=== PATIENT | male | born 1950 | race Caucasian/White ===

== ENCOUNTER 2019-06-01 05:32 | Outpatient (CLI) | payer MEDICARE ==
[~2019-06-01] VITALS: Ht 152.4 cm; Wt 88.5 kg
[2019-06-01] MEDS ORDERED: MULT-1104 PO (07:40)
[2019-06-01] MEDS ORDERED: LISI40TA PO (07:40)
[2019-06-01] MEDS ORDERED: ATOR10TA66 PO (07:40)
[2019-06-01] MEDS ORDERED: CARV25TA PO (07:40)
[2019-06-01] MEDS ORDERED: AMLO10TA7 PO (07:40)
[2019-06-01] MEDS ORDERED: FINA5TAB6 PO (07:40)
[2019-06-01] MEDS ORDERED: ASPI-586 PO (07:40)
[2019-06-01] MEDS ORDERED: TAMS0.4C98 PO (07:40)
== END 2019-06-01 07:42 | disposition home or self-care (01) ==
LOC: PREOP 05:32
PROVIDERS: ATTEND Specialist
DX: Z01.818 Encounter for other preprocedural examination (principal)

== ENCOUNTER 2019-06-02 08:11 | Day surgery (SDC) | payer MEDICARE, MEDICAID ==
[~2019-06-02] VITALS: Wt 88.5 kg
[~2019-06-02 08:11] MED LIST: AMLO10TA7 PO; ASPI-586 PO; ATOR10TA66 PO; CARV25TA PO; FINA5TAB6 PO; LISI40TA PO; MULT-1104 PO; TAMS0.4C98 PO
[2019-06-02 08:20] VITALS: BP 134/79
[2019-06-02] MEDS: TETRACAINE 0.5% OPHTH SOLN 4 ML BTL (SINGLE DOSE ONLY) OU PRN ×3 (08:26→08:32)
[2019-06-02] MEDS ORDERED: PHENYLEPHRINE 10% OPHTH (NEO-SYN) 5 ML BTL OU PRN (08:30)
[2019-06-02] MEDS ORDERED: TROPICAMIDE 1% OPH SOLN (MYDRIACYL) 15 ML BTL OU PRN (08:30)
--- NOTE | 2019-06-02 08:33 | Ophthalmologist Pre-Op Note ---
Pre-Operative Progress Note H&P Reviewed The H&P was reviewed, patient examined and no changes noted. Date H&P Reviewed: Jun 02, 2019 Time H&P Reviewed: 08:33 Pre-Op Dx Secondary Cataract, Bilateral Eyes ROSE TROY MD Jun 02, 2019 08:33
--- NOTE | 2019-06-02 08:54 | Ophthalmology Operative Report ---
Cataract removal/placement IOL PREOPERATIVE DIAGNOSIS: Cataract Right Eye POSTOPERATIVE DIAGNOSIS: Cataract Right Eye PROCEDURE: Cataract removal and placement of posterior chamber implant, right eye SURGEON: Geovani Troy ANESTHESIA: Topical with sedation COMPLICATIONS: None ESTIMATED BLOOD LOSS: Minimal DESCRIPTION OF PROCEDURE: After proper informed consent was obtained, the patient, a 69 male, was taken to the Operating Room and the right eye was anesthetized with tetracaine. The right eye was then prepped and draped in the usual manner. A wire lid speculum was placed. A paracentesis was made at the left hand position. Preservative free lidocaine was injected into the anterior chamber followed by viscoelastic. A clear corneal incision was made in the temporal position. A capsulorrhexis was preformed and the central nuclear and cortical material were removed. The posterior capsule was polished and Obi 17.5 AU00T0 IOL was placed into the capsular bag. The residual viscoelastic was aspirated and balanced saline solution was injected into the anterior chamber. Moxifloxacin was injected into the anterior chamber. The wound was checked and found to be water tight. The patient tolerated the procedure well without complications. GEOVANI TROY MD Jun 02, 2019 08:54
[2019-06-02 09:25] VITALS: BP 134/79
--- NOTE | 2019-06-02 09:31 | Ophthalmology Operative Report ---
YAG Capsulotomy PREOPERATIVE DIAGNOSIS: Secondary Cataract Bilateral POSTOPERATIVE DIAGNOSIS: Secondary Cataract Bilateral PROCEDURE: YAG Capsulotomy, Bilateral SURGEON: Geovani Troy ANESTHESIA: Topical anesthesia COMPLICATIONS: None ESTIMATED BLOOD LOSS: Minimal DESCRIPTION OF PROCEDURE: After proper informed consent was obtained, the patient's, a 69 male , received one drop of Tropicamide and one drop of Tetracaine in each eye. The patient was then placed at the YAG laser and using a power of [3.4 ] millijoules and bursts [ 21] right eye and [27 ] left eye were used to fashion a central capsulotomy. The patient tolerated the procedure well without complications. GEOVANI TROY MD Jun 02, 2019 09:31
== END 2019-06-02 09:25 | disposition home or self-care (01) ==
LOC: SDC 08:11
PROVIDERS: ATTEND Specialist
DX: H26.493 Other secondary cataract, bilateral (principal); H25.11 Age-related nuclear cataract, right eye; Z87.891 Personal history of nicotine dependence